=== PATIENT | female | born 1960 | race Asian ===

== ENCOUNTER → 2020-03-19 | Day surgery (SDC) | payer BC, OTHER ==
[~2020-03-19] MED LIST: FENTANYL CITRATE/PF 100MCG/2 ML INJ ONE; HYOSCYAMINE 0.125 MG TAB ONE; LETROZOLE2.5 MG PO; MIDAZOLAM HCL 2 MG/2 ML VIAL ONE; PROPOFOL IV EMULSION 10 MG/ML 20 ML VIAL ONE
--- NOTE | 2020-03-19 13:27 | Operative Report ---
DATE OF PROCEDURE: 03/19/2020 SURGEON: Rogerio Cason MD PROCEDURE: Colonoscopy with polypectomy. INDICATION FOR PROCEDURE: Colorectal cancer screening. MEDICATIONS: The patient was done under MAC, please see anesthesiologist's note. PROCEDURE IN DETAIL: With the patient in the left lateral decubitus position, a flexible fiberoptic Olympus colonoscope was inserted into the rectum with ease and advanced all the way to the cecum. A minute polyp was noted in the cecum that was removed with the cold biopsy forceps and the site was hemoclipped x1. Ascending, transverse, descending, sigmoid, and rectum appeared to be within normal limits. The scope was then retroflexed into the distal rectum and small internal hemorrhoids were noted, none of which was actively bleeding. The scope was then straightened out, it was subsequently withdrawn, and the patient tolerated the procedure well. IMPRESSION: 1. Cecal polyp, cold biopsied, site hemoclipped x1. 2. Internal hemorrhoids, none actively bleeding. PLAN: Follow up histology. Initiate high-fiber, low-fat diet. Initiate high-fiber supplement. The patient might benefit from a followup colonoscopy in 5 years. Rogerio Cason MD [facility] [place]/[facility] /[id number] cc: Dr. Maria
== END | disposition home or self-care (01) ==
LOC: OR 11:36
PROVIDERS: ATTEND Internal Medicine Gastroenterology
DX: Z12.11 Encounter for screening for malignant neoplasm of colon (principal); K63.5 Polyp of colon; K64.8 Other hemorrhoids; Z01.810 Encounter for preprocedural cardiovascular examination; Z01.812 Encounter for preprocedural laboratory examination; Z11.59 Encounter for screening for other viral diseases; Z85.3 Personal history of malignant neoplasm of breast
CPT/HCPCS: 45380; 93005; J2250; J2704; J3010; U0002; 45378; 45384